=== PATIENT | female | born 1960 | race Caucasian/White ===

== ENCOUNTER 2017-09-21 19:22 | Emergency (ER) | payer OTHER ==
[~2017-09-21] VITALS: Ht 162.6 cm; Wt 72.6 kg
--- NOTE | 2017-09-21 19:36 | Emergency Room Report ---
History of Present Illness General Chief Complaint: Fever Source: Medical Record, PMD Present Illness HPI 57YOM sent by PMD From [facility] for concern for sepsis/AMS Fever/tachycardia noted at [facility]F and by EMS Patient is s/p ?brain surgery for tumor ?, schizophrenia, intracranial HTN, GERD , OA Not providing much HPI - head nodded to right sided but follows commands, answers questions UA from 09/15, Urine Cx shows >100k EColi Sensitive to Zosyn Allergies: Coded Allergies: No Known Allergies (Unverified , 09/21/17) Patient History Past Medical History: other - HPI limited Past Surgical History: unable to obtain Pertinent Family History: unable to obtain Now: No Nursing Documentation-PMH Past Medical History: No History, Except For Hx Neurological Problems: No - Osteoarthritis, Ataxia, Obesity Hx Seizures: Yes Review of Systems All Other Systems: limited - AMS Physical Exam Vital Signs Date Time Temp Pulse Resp B/P (MAP) Pulse Ox O2 Delivery O2 Flow Rate FiO2 09/21/17 19:15 102.4 129 12 118/87 95 Nasal Cannula Sp02 EP Interpretation: reviewed, normal General Appearance: normal inspection, well appearing, no apparent distress, alert, non-toxic, obese, other - Wearing diaper, obese Head: normocephalic, other - Craniotomy scar on right side Eyes: bilateral eye PERRL, bilateral eye EOMI ENT: normal ENT inspection, hearing grossly normal, normal voice Neck: normal inspection, full range of motion, supple, no bony tend Respiratory: normal inspection, lungs clear, normal breath sounds, no respiratory distress, no retraction, no wheezing Cardiovascular #1: regular rate, rhythm, no edema Gastrointestinal: normal inspection, normal bowel sounds, non tender, soft, no guarding, no hernia Genitourinary: no CVA tenderness Musculoskeletal: normal inspection, back normal, normal range of motion, Jenna' s Sign negative Neurologic: normal inspection, alert, responsive, speech normal Psychiatric: normal inspection, judgement/insight normal, mood/affect normal Skin: normal inspection, normal color, no rash Medical Decision Making Diagnostic Impression: Primary Impression: Sepsis Qualified Codes: A41.9 - Sepsis, unspecified organism Additional Impressions: UTI (urinary tract infection) Qualified Codes: N30.01 - Acute cystitis with hematuria Hypokalemia ER Course Fever and tachycardia - likely sepsis Source: likely urine based on paperwork from [facility] Labs: No leuks. H&H stable. HypoK. UA grossly infected here Empiric abx given Blood Cx pending K repleted Endorsed Dr Brownlee Tele admit 830pm EKG Diagnostic Results Rate: tachycardiac Rhythm: NSR ST Segments: no acute changes ASA given to the pt in ED: No Rhythm Strip Diag. Results EP Interpretation: yes Rate: 132 Rhythm: NSR, no PVC's, no ectopy Last Vital Signs Date Time Temp Pulse Resp B/P (MAP) Pulse Ox O2 Delivery O2 Flow Rate FiO2 09/21/17 19:15 102.4 129 12 118/87 95 Nasal Cannula Status: improved Disposition: ADMITTED INPATIENT Condition: Critical SHAHZAD MIR M.D. Sep 21, 2017 19:36
[2017-09-21 20:00] VITALS: BP 131/89
[2017-09-21 20:13] LABS: BASOPHILS % (AUTO) 0.7 % (0.0-2.0); EOSINOPHILS % (AUTO) 0.1 % (0.0-3.0); LYMPHOCYTES % (AUTO) 16.9 % (20.0-45.0); MEAN CORPUSCULAR HEMOGLOBIN 30.9 PG (27.0-31.0); MEAN CORPUSCULAR HGB CONC 32.3 G/DL (32.0-36.0); MEAN CORPUSCULAR VOLUME 96 FL (80-99); MEAN PLATELET VOLUME 6.4 FL (6.5-10.1); MONOCYTES % (AUTO) 7.5 % (1.0-10.0); NEUTROPHILS % (AUTO) 74.7 % (45.0-75.0); PLATELET COUNT 264 K/UL (150-450); RED BLOOD COUNT 4.45 M/UL (4.20-5.40); RED CELL DISTRIBUTION WIDTH 14.9 % (11.6-14.8); WHITE BLOOD COUNT 9.8 K/UL (4.8-10.8)
[2017-09-21] MEDS ORDERED: Zosyn 4.5gm inj ONE (20:14)
[2017-09-21] MEDS ORDERED: Acetaminophen 650 MG SUPP RECTAL ONE ×2 (20:15)
[2017-09-21 20:21] LABS: APPEARANCE,URINE CLOUDY; KETONES,URINE 4+ (NEGATIVE); LEUKOCYTE ESTERASE ,URINE 3+ (NEGATIVE); NITRITE,URINE POSITIVE (NEGATIVE); PH,URINE 5 (4.5-8.0); PROTEIN,URINE 3+ (NEGATIVE); UROBILINOGEN,URINE 4 MG/DL (0.0-1.0)
[2017-09-21 20:35] LABS: BACTERIA,URINE MANY /HPF; ICTOTEST NEGATIVE; RBC,URINE 20-30 /HPF (0 - 2); SQUAMOUS EPITHELIAL CELL,UR MODERATE /LPF (NONE/OCC); WBC,URINE TNTC /HPF (0 - 2)
[2017-09-21 20:43] LABS: ALANINE AMINOTRANSFERASE 62 U/L (12-78); ALBUMIN/GLOBULIN RATIO 0.7 (1.0-2.7); ASPARTATE AMINO TRANSFERASE 46 U/L (15-37); CALCIUM 9.1 MG/DL (8.5-10.1); CARBON DIOXIDE 21 MMOL/L (21-32); CKMB 0.6 NG/ML (0.0-3.6); CREATININE 0.7 MG/DL (0.55-1.30); GLOMERULAR FILTRATION RATE > 60 mL/min (>60); POTASSIUM 2.9 MMOL/L (3.5-5.1); TOTAL PROTEIN 7.3 G/DL (6.4-8.2)
[2017-09-21 21:00] LABS: ANION GAP 17 mmol/L (5-15); CHLORIDE 113 MMOL/L (98-107); SODIUM 150 MMOL/L (136-145)
[2017-09-21 21:53] VITALS: BP 145/81
[2017-09-21] MEDS ORDERED: Piperacillin/Tazobactam 4.5 GM in NS 110 ML IV SCH (22:00)
[2017-09-21 22:12] VITALS: BP 145/81
--- NOTE | 2017-09-22 10:46 | Diagnostic Imaging Report ---
Indication: SOB Technique: One view of the chest Comparison: none Findings: There is a left-sided pleural effusion. The heart is enlarged. The lungs and right pleural space are clear. Impression: Cardiomegaly Left-sided pleural effusion
--- NOTE | 2017-09-25 18:01 | Cardiology Report ---
APPROVED REPORT EKG Measurement Heart [id number] MN [id number] [id number]-6 [id number] Sinus tachycardia Otherwise normal ECG
== END 2017-09-21 22:25 | disposition short-term general hospital (02) ==
LOC: EDBD 19:22 → EMR 19:44
DX: A41.9 Sepsis, unspecified organism (principal); N39.0 Urinary tract infection, site not specified; E87.6 Hypokalemia; I51.7 Cardiomegaly; J90 Pleural effusion, not elsewhere classified
CPT/HCPCS: 36415; 71010; 80053; 81003; 82550; 82553; 83605; 84484; 85025; 87040; 87086; 87181; 93005; 96361; 96365; 96375; 99285; J3480